=== PATIENT | male | born 1960 | race Caucasian/White ===

== ENCOUNTER 2018-04-23 18:15 | Emergency (ER) | payer BC ==
[~2018-04-23] VITALS: Ht 175.3 cm; Wt 111.1 kg
--- NOTE | ~2018-04-23 | EKG ---
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
[~2018-04-23 18:15] MED LIST: ALLOPURINOL 10100 M1 PO; BENZONATATE100 MG PO; COZAAR 50 MG TA50 M1 PO; LISINOPRIL2.5 MG; NORCO 5-325 TA1 EACH PO; TRICOR48 MG PO; ULTRAM 50MG TAB50 MG PO; UNKNOWN CHOLESTEROL
[2018-04-23 18:20] VITALS: BP 198/88
[2018-04-23 18:35] LABS: ABSOLUTE NEUTROPHILS 4.6 thou/uL (1.4-8.2); EOSINOPHILS 5.7 % (0.0-3.0); HEMATOCRIT 46.4 % (42.0-52.0); HEMOGLOBIN 16.5 gm/dL (14.0-18.0); LYMPHOCYTES 33.6 % (24.0-44.0); MCH 33.4 pg (26.0-34.0); MCHC 35.5 g/dL (28.0-37.0); MCV 94.2 fL (80.0-100.0); MONOCYTES 5.8 % (1.0-8.0); PLATELET COUNT 283 thou/uL (150-400); POLYS 53.9 % (36.0-66.0); RBC 4.93 mil/uL (4.50-6.00); RDW 12.4 % (10.5-14.5); WBC 8.4 thou/uL (4.0-11.0)
[2018-04-23 18:37] LABS: ANION GAP 8 mmol/L (7-16); BUN 9 mg/dL (7-18); CHLORIDE 101 mmol/L (98-107); CO2 29 mmol/L (21-32); CREATININE 1.1 mg/dL (0.7-1.3); GLUCOSE 132 mg/dL (74-106); POTASSIUM 3.6 mmol/L (3.5-5.1); SODIUM 138 mmol/L (136-145)
[2018-04-23 18:46] LABS: TROPONIN-I <0.06 ng/mL (<0.06)
[2018-04-23 20:21] VITALS: BP 128/76
== END 2018-04-23 21:36 | disposition home or self-care (01) ==
LOC: ER 18:15 → EROBS 19:44 → ER 19:44
PROVIDERS: Emergency Medicine
DX: R07.89 Other chest pain (principal); M79.602 Pain in left arm; I10 Essential (primary) hypertension; Z88.0 Allergy status to penicillin

== ENCOUNTER → 2018-04-27 | Outpatient (CLI) | payer OTHER | LOC: CAT 15:20 | DX: Z13.6 Encounter for screening for cardiovascular disorders (principal); E78.00 Pure hypercholesterolemia, unspecified ==

== ENCOUNTER 2019-09-11 02:32 | Emergency (ER) | payer BC ==
[~2019-09-11] VITALS: Ht 175.3 cm; Wt 108.9 kg
[2019-09-11 03:52] LABS: ABSOLUTE NEUTROPHILS 3.1 thou/uL (1.4-8.2); BASOPHILS 0.9 % (0.0-2.0); EOSINOPHILS 7.4 % (0.0-3.0); HEMATOCRIT 39.6 % (42.0-52.0); HEMOGLOBIN 13.6 gm/dL (14.0-18.0); LYMPHOCYTES 41.5 % (24.0-44.0); MCH 32.7 pg (26.0-34.0); MCHC 34.3 g/dL (28.0-37.0); MCV 95.3 fL (80.0-100.0); MONOCYTES 6.4 % (1.0-8.0); PLATELET COUNT 270 thou/uL (150-400); POLYS 43.8 % (36.0-66.0); RBC 4.16 mil/uL (4.50-6.00); WBC 7.1 thou/uL (4.0-11.0)
[2019-09-11 03:55] LABS: ANION GAP 16 mmol/L (7-16); BUN 15 mg/dL (7-18); CALCIUM 8.8 mg/dL (8.5-10.1); CHLORIDE 101 mmol/L (98-107); CO2 23 mmol/L (21-32); CREATININE 1.5 mg/dL (0.7-1.3); GLUCOSE 133 mg/dL (74-106); POTASSIUM 3.3 mmol/L (3.5-5.1); SODIUM 140 mmol/L (136-145)
[2019-09-11 04:04] LABS: TROPONIN-I <0.06 ng/mL (<0.06)
[2019-09-11 06:21] VITALS: BP 127/67
--- NOTE | 2019-09-11 08:54 | EKG ---
[address] [address] [facility] 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1960 Requested By: Dominguez Hyman Order Number: [id number] MD: Parag Vazquez Measurements Intervals [place] Rate: 69 P: 23 VA: 181 QRS: 37 QRSD: 101 T: QT: 449 QTc: 481 Interpretive Statements Sinus rhythm Nonspecific T wave abnormality Borderline prolonged QT interval Compared to ECG 04/23/2018 18:18:51 T-wave abnormality now present Electronically Signed On 09-11-2019 8:54:33 FUNDS DEVELOPMENT DIRECTOR by Parag Vazquez [email or web address] <ELECTRONICALLY SIGNED> By: Parag Vazquez MD, [facility] 09/11/19 0854 0239 0239 Parag Vazquez MD, FACC /EPI
== END 2019-09-11 06:20 | disposition home or self-care (01) ==
LOC: ER 02:32
PROVIDERS: Emergency Medicine
DX: I95.9 Hypotension, unspecified (principal); T42.8X5A Adverse effect of antiparkinsonism drugs and other central muscle-tone depressants, initial encounter; R42 Dizziness and giddiness; F17.210 Nicotine dependence, cigarettes, uncomplicated; I10 Essential (primary) hypertension; M10.9 Gout, unspecified; Z88.0 Allergy status to penicillin; Z79.899 Other long term (current) drug therapy; Y92.89 Other specified places as the place of occurrence of the external cause

== ENCOUNTER → 2021-08-23 | Outpatient (CLI) | payer OTHER | LOC: CAT 11:51 | PROVIDERS: ATTEND Internal Medicine Cardiovascular Disease | DX: Z13.6 Encounter for screening for cardiovascular disorders (principal); I25.10 Atherosclerotic heart disease of native coronary artery without angina pectoris; E78.00 Pure hypercholesterolemia, unspecified ==